=== PATIENT | female | born 1940 | race Caucasian/White ===

== ENCOUNTER 2017-04-24 13:07 | Emergency (ER) | payer OTHER ==
[2017-04-24 13:15] VITALS: BP 150/87; PULSE 76; RESP 20; TEMP 98.6; O2SAT 98
--- NOTE | 2017-04-24 15:14 | ED PDOC ---
HPI: General Adult Time Seen by Provider: 04/24/17 13:10 Chief Complaint (Nursing): Dizziness/Lightheaded Chief Complaint (Provider): med refill History Per: Family (automotive parts interpreter) Additional Complaint(s): 76yo female maltese speaking, via family member states needs refills of several medications. Denies other physical complaints. Medications are not [place]- based. Attempted to translate and find acceptable alternative for [place]-approved medications. Past Medical History Reviewed: Historical Data, Nursing Documentation, Vital Signs Vital Signs: Last Vital Signs Temp 98.6 F 04/24/17 13:12 Pulse 76 04/24/17 13:12 Resp 20 04/24/17 13:12 BP 150/87 04/24/17 13:12 Pulse Ox 98 04/24/17 15:14 - Medical History PMH: HTN Denies: Chronic Kidney Disease - Family History Family History: States: Unknown Family Hx - Living Arrangements Living Arrangements: With Family - Home Medications Home Medications: Ambulatory Orders Medication Instructions Recorded Aspirin [Ecotrin] 100 mg PO DAILY 09/05/16 Clobetasol 0.05% [Temovate 0.05%] 25 gm TOP PRN PRN 09/05/16 Koronarine 25 mg PO DAILY 09/05/16 Trimetazidine Dihydrochloride 35 mg PO DAILY 09/05/16 Aspirin [Ecotrin] 81 mg PO DAILY #30 tabec 04/24/17 Metoprolol Tartrate 25 mg PO BID #60 tablet 04/24/17 - Allergies Allergies/Adverse Reactions: Allergies Allergy/AdvReac Type Severity Reaction Status Date / Time No Known Allergies Allergy Verified 04/24/17 13:11 Review of Systems Constitutional: Negative for: Fever, Chills Cardiovascular: Negative for: Chest Pain, Palpitations Neurological: Negative for: Weakness, Numbness Physical Exam - Reviewed Nursing Documentation Reviewed: Yes Vital Signs Reviewed: Yes - Physical Exam Appears: Positive for: Well, Non-toxic Head Exam: Positive for: ATRAUMATIC Respiratory: Negative for: Respiratory Distress Neurologic/Psych: Negative for: Motor/Sensory Deficits - ECG O2 Sat by Pulse Oximetry: 98 Medical Decision Making Medical Decision Making: Will Rx metoprolol and ASA and refer clinic for further research into precise indications for ?foreign blood thinner and antihypertensive. Disposition - Clinical Impression Clinical Impression: Hypertension, Medication refill - Patient ED Disposition Is Patient to be Admitted: No - Disposition Referrals: [facility] [Outside] Disposition: Routine/Home Disposition Time: 14:15 Condition: STABLE Additional Instructions: See clinic for further testing. Return to ER for any new or worsening symptoms. Prescriptions: Aspirin [Ecotrin] 81 mg PO DAILY #30 tabec Metoprolol Tartrate 25 mg PO BID #60 tablet Instructions: Medicine Refill (ED) Forms: [employer] (Bulgarian)
== END 2017-04-24 15:10 | disposition home or self-care (01) ==
LOC: H.ER 13:07
DX: Z76.0 Encounter for issue of repeat prescription (principal); I10 Essential (primary) hypertension